=== PATIENT | female | born 1950 ===

== ENCOUNTER 2016-10-13 08:57 | Emergency (ER) | payer OTHER ==
[2016-10-13 09:21] VITALS: TEMP 98.9
[2016-10-13] MEDS ORDERED: Sodium Chloride 0.9% 1,000 ML IV ONE (09:45)
[2016-10-13 10:00] LABS: BASO % 0.7 % (0.0-2.0); EOS # 0.1 K/uL (0.0-0.7); EOS % 1.1 % (0.0-4.0); HEMATOCRIT 39.2 % (34.0-47.0); LYMPH # 1.7 K/uL (1.0-4.3); LYMPH % 32.3 % (20.0-40.0); MEAN CELL VOLUME 89.6 fL (81.0-99.0); MEAN CORPUSCULAR HEMOGLOBIN 30.8 pg (27.0-31.0); MEAN CORPUSCULAR HGB CONC 34.4 g/dL (33.0-37.0); MEAN PLATELET VOLUME 7.9 fL (7.2-11.7); MONO # 0.4 K/uL (0.0-0.8); MONO % 7.3 % (0.0-10.0); RED CELL DISTRIBUTION WIDTH 12.8 % (11.5-14.5); WHITE BLOOD COUNT 5.3 K/uL (4.8-10.8)
[2016-10-13 10:03] LABS: RBC URINE 1 /hpf (0-3); URINE BILIRUBIN NEGATIVE (NEGATIVE); URINE BLOOD NEGATIVE (NEGATIVE); URINE COLOR Yellow (YELLOW); URINE GLUCOSE (UA) NORMAL (Normal); URINE KETONE NEGATIVE (NEGATIVE); URINE LEUKOCYTE ESTERASE TRACE Leu/uL (Negative); URINE PROTEIN NEGATIVE (NEGATIVE); URINE UROBILINOGEN NORMAL mg/dL (0.2-1.0); WBC URINE 5 /hpf (0-5)
[2016-10-13 10:14] LABS: CHLORIDE 101 mmol/L (98-107); SODIUM 141 mmol/L (132-148)
[2016-10-13 10:16] LABS: GFR AFRICAN-AMERICAN > 60
[2016-10-13 10:17] LABS: ALB/GLOB RATIO 1.2 (1.0-2.1); ALKALINE PHOSPHATASE 75 U/L (38-126); ALT/SGPT 23 U/L (9-52); AST/SGOT 20 U/L (14-36); BILIRUBIN,TOTAL 0.8 mg/dL (0.2-1.3); BLOOD UREA NITROGEN 15 mg/dL (7-17); CARBON DIOXIDE 25 mmol/L (22-30); GLUCOSE,RANDOM 178 mg/dL (65-105); TOTAL PROTEIN 7.2 g/dL (6.3-8.3)
--- NOTE | 2016-10-13 10:17 | C.PDOC ---
History Of Present Illness Patient is a 66 y/o female, with PMH of diabetes, presents to ED for evaluation of generally not feeling well and dizziness. Patient states that she ran out of her diabetic medication 3 weeks ago. Notes taking Amaryl 2mg BID. States she came from [facility] 4 months ago and has not had any medical care. Patient is also complaining of chronic right knee pain. Otherwise, denies any headache, chest pain, shortness of breath, injury, extremity weakness/numbness, or fever. Time Seen by Provider: 10/13/16 09:35 Chief Complaint (Nursing): Dizziness/Lightheaded History Per: Patient History/Exam Limitations: no limitations Onset/Duration Of Symptoms: Days Current Symptoms Are (Timing): Still Present Possible Causative Factor(s): Other (stopped DM medications) Additional History Per: Family Past Medical History Reviewed: Historical Data, Nursing Documentation, Vital Signs Vital Signs: Last Vital Signs Temp 98.9 F 10/13/16 09:17 Pulse 55 L 10/13/16 11:08 Resp 16 10/13/16 11:08 BP 118/65 10/13/16 11:08 Pulse Ox 97 10/13/16 13:39 - Medical History PMH: Anxiety, Diabetes Surgical History: (1) Family History: States: Unknown Family Hx - Social History Hx Alcohol Use: No Hx Substance Use: No - Immunization History Hx Tetanus Toxoid Vaccination: No Hx Influenza Vaccination: No Hx Pneumococcal Vaccination: No Review Of Systems Except As Marked, All Systems Reviewed And Found Negative. Constitutional: Positive for: Malaise. Negative for: Fever, Chills Eyes: Negative for: Vision Change Cardiovascular: Negative for: Chest Pain, Palpitations Respiratory: Negative for: Shortness of Breath Gastrointestinal: Negative for: Nausea, Vomiting, Abdominal Pain Musculoskeletal: Positive for: Leg Pain (right knee pain) Neurological: Positive for: Dizziness. Negative for: Weakness, Numbness, Headache Physical Exam - Physical Exam Appears: Non-toxic, No Acute Distress Skin: Warm, Dry Head: Atraumatic, Normacephalic Eye(s): bilateral: Normal Inspection, PERRL, EOMI Nose: Normal, No Flaring Oral Mucosa: Moist Neck: Normal ROM, Supple Chest: Symmetrical, No Tenderness Cardiovascular: Rhythm Regular, No Murmur Respiratory: Normal Breath Sounds, No Rales, No Rhonchi, No Wheezing Gastrointestinal/Abdominal: Soft, No Tenderness Extremity: Normal ROM, Tenderness (mild to anterior right knee), No Pedal Edema , Capillary Refill (<2 sec.), No Deformity, No Swelling Pulses: Left Dorsalis Pedis: Normal, Right Dorsalis Pedis: Normal Neurological/Psych: Oriented x3, Normal Speech, Normal Cranial Nerves, No Cerebellar Signs, Normal Motor, Normal Sensation Gait: Steady ED Course And Treatment - Laboratory Results Result Diagrams: 10/13/16 09:55 10/13/16 09:55 ECG: Interpreted By Me, Viewed By Me ECG Rhythm: Sinus Rhythm ECG Interpretation: No Acute Changes Rate From EC (bpm) O2 Sat by Pulse Oximetry: 97 (on RA) Medical Decision Making Medical Decision Making: Impression: 66 y/o female, with PMH of diabetes, presents with dizziness. Patient has not taken diabetes medication for last 3 weeks. Plan: * Blood work * UA * EKG * IV fluids * Reassess and disposition Progress note: Labs reviewed, no acidosis and no ketones. On re-evaluation, patient is resting comfortably, no acute distress. Vital signs are stable. No signs of neuro deficits or DKA. Patient is being discharged home with Rx and is instructed to follow up with physician/clinic in 1-2 days for further evaluation. Disposition Counseled Patient/Family Regarding: Diagnosis, Need For Followup, Rx Given - Disposition Referrals: [facility] [Outside] [facility] [Outside] [place] [facility] [Outside] Disposition: HOME/ ROUTINE Disposition Time: 10:42 Condition: GOOD Additional Instructions: Por favor, siga en la clnica para ms atencin de la diabetes Joselyn la medicacin dos veces al da Prescriptions: Blood Sugar Diagnostic [Blood Glucose Test Strip] 1 each MC BID #100 strip Blood-Glucose Meter [Blood Glucose Meter] 1 each MC DAILY #1 each Glimepiride [amaRYL] 2 mg PO BID #30 tab Instructions: Diabetic Hyperglycemia (ED) Forms: [facility]mi (Congolese) Print Language: INDONESIAN - POA Present On Arrival: Poor Glycemic Control - Clinical Impression Clinical Impression: Medicine refill, Poorly controlled diabetes mellitus - PA / FINISHING AREA OPERATOR / Resident Statement MD/DO has reviewed & agrees with the documentation as recorded. - Scribe Statement The provider has reviewed the documentation as recorded by the Eric Pena All medical record entries made by the Scribe were at my direction and personally dictated by me. I have reviewed the chart and agree that the record accurately reflects my personal performance of the history, physical exam, medical decision making, and the department course for this patient. I have also personally directed, reviewed, and agree with the discharge instructions and disposition.
[2016-10-13 10:18] LABS: CALCIUM 9.4 mg/dl (8.6-10.4)
[2016-10-13 11:09] VITALS: BP 118/65; PULSE 55; RESP 16
[2016-10-13 11:35] VITALS: O2SAT 97
--- NOTE | 2016-10-13 20:06 | CARD ---
APPROVED REPORT EKG Measurement Heart [id number] <Conclusion> Normal sinus rhythm Normal ECG
== END 2016-10-13 11:09 | disposition home or self-care (01) ==
LOC: C.ER 08:57
DX: Z76.0 Encounter for issue of repeat prescription (principal); E11.65 Type 2 diabetes mellitus with hyperglycemia; Z79.84 Long term (current) use of oral hypoglycemic drugs
CPT/HCPCS: 80053; 81001; 82009; 85025; 93005; 96360; 99285; J7040

== ENCOUNTER 2017-04-24 08:03 | Emergency (ER) | payer OTHER ==
[2017-04-24 08:07] VITALS: BMI 25.4
[2017-04-24] MEDS ORDERED: Sodium Chloride 0.9% 1,000 ML IV ONE (08:39)
--- NOTE | 2017-04-24 08:40 | C.PDOC ---
History Of Present Illness 67 year old female with a past medical history of diabetes who presents to the emergency department with a complaint headache and dizziness intermittently that began on 04/19/2017, after she came back from [facility] and not being able to take her diabetic medication due to not having a prescription. Reports she did not check her sugar this morning but feels off. States she takes 2 mg of Amaryl twice a day. Denies any other medical complaints. No cp, no sob, no nausea, no vomiting, no diarrhea, no fever, no chill.s Time Seen by Provider: 04/24/17 08:40 Chief Complaint (Nursing): High Blood Sugar History Per: Patient History/Exam Limitations: no limitations Past Medical History Reviewed: Historical Data, Nursing Documentation, Vital Signs Vital Signs: Last Vital Signs Temp 98.1 F 04/24/17 10:20 Pulse 54 L 04/24/17 10:20 Resp 20 04/24/17 10:20 BP 134/50 L 04/24/17 10:20 Pulse Ox 98 04/24/17 18:18 - Medical History PMH: Anxiety, Diabetes Surgical History: (1) Family History: States: Unknown Family Hx - Social History Hx Alcohol Use: No Hx Substance Use: No - Immunization History Hx Tetanus Toxoid Vaccination: No Hx Influenza Vaccination: No Hx Pneumococcal Vaccination: No Review Of Systems Except As Marked, All Systems Reviewed And Found Negative. (As per HPI, otherwise negative) Eyes: Positive for: Vision Change (Blurry) Neurological: Positive for: Headache, Dizziness Physical Exam - Physical Exam Appears: Well, Non-toxic, Toxic Skin: Normal Color, Warm, Dry Head: Atraumatic Eye(s): bilateral: Normal Inspection Chest: Symmetrical Cardiovascular: Rhythm Regular, No Murmur Respiratory: Normal Breath Sounds, No Decreased Breath Sounds, No Accessory Muscle Use, No Wheezing Gastrointestinal/Abdominal: Normal Exam, Soft, No Tenderness Back: Normal Inspection Extremity: Normal ROM Neurological/Psych: Oriented x3 Gait: Steady ED Course And Treatment - Laboratory Results Result Diagrams: 04/24/17 08:54 04/24/17 08:54 ECG Rhythm: Sinus Rhythm (Normal at 59 bpm. Normal interval axis), Nonspecific Changes (No ST or T wave abnormalities) O2 Sat by Pulse Oximetry: 98 (RA) Pulse Ox Interpretation: Normal Medical Decision Making Medical Decision Making: Time: 832 --AccuCheck --CMP --Ketone, Serum --Troponin I --CBC w/ diff --sodium chloride 1 L IV --Reevaluation Time: 941 --Patient is medically stable for discharged home and given Rx for Amaryl 2 mg. Follow up with PMD 2 days. Clinical Impression: Diabetes Disposition Counseled Patient/Family Regarding: Studies Performed, Diagnosis, Need For Followup, Rx Given - Disposition Referrals: [facility] [Outside] Disposition: HOME/ ROUTINE Disposition Time: 09:42 Condition: STABLE Additional Instructions: follow up with your doctor or medical clinic in 2 days call to make an appointment take medication as prescribed return to ER if symptoms worsens or progress Prescriptions: Glimepiride [amaRYL] 2 mg PO BID #60 tab Instructions: Type 2 Diabetes Forms: Gen Discharge Inst Malagasy, [facility] (Malagasy) Print Language: TANZANIAN - Clinical Impression Clinical Impression: Diabetes - Scribe Statement Mallorie Velez
[2017-04-24] MEDS ORDERED: Sodium Chloride 0.9% 1,000 ML ONE (08:44)
[2017-04-24 09:03] LABS: BASO % 0.8 % (0.0-2.0); EOS # 0.1 K/uL (0.0-0.7); EOS % 1.1 % (0.0-4.0); LYMPH # 1.8 K/uL (1.0-4.3); MEAN CELL VOLUME 90.7 fL (81.0-99.0); MEAN CORPUSCULAR HEMOGLOBIN 31.3 pg (27.0-31.0); MEAN CORPUSCULAR HGB CONC 34.5 g/dL (33.0-37.0); MEAN PLATELET VOLUME 7.7 fL (7.2-11.7); MONO # 0.3 K/uL (0.0-0.8); MONO % 6.8 % (0.0-10.0); NEUT # 2.6 K/uL (1.8-7.0); NEUT % 54.3 % (50.0-75.0); NRBC % 0.1 % (0.0-2.0); RBC 4.13 Mil/uL (3.80-5.20); RED CELL DISTRIBUTION WIDTH 13.5 % (11.5-14.5); WHITE BLOOD COUNT 4.8 K/uL (4.8-10.8)
[2017-04-24 09:15] LABS: ALB/GLOB RATIO 1.2 (1.0-2.1); ALBUMIN 3.9 g/dL (3.5-5.0); ALT/SGPT 28 U/L (9-52); AST/SGOT 23 U/L (14-36); BLOOD UREA NITROGEN 20 mg/dL (7-17); CALCIUM 9.1 mg/dl (8.6-10.4); GFR AFRICAN-AMERICAN > 60; GFR NON-AFRICAN AMERICAN > 60
[2017-04-24 10:21] VITALS: BP 134/50; PULSE 54; RESP 20; TEMP 98.1
[2017-04-24 18:18] VITALS: O2SAT 98
== END 2017-04-24 10:21 | disposition home or self-care (01) ==
LOC: C.ER 08:03
DX: E11.9 Type 2 diabetes mellitus without complications (principal)
CPT/HCPCS: 80053; 82009; 82948; 84484; 85025; 96360; 99285; J7040